=== PATIENT | male | born 1995 | race Caucasian/White ===

== ENCOUNTER 2018-05-16 17:26 | Emergency (ER) | payer OTHER, BC ==
[2018-05-16] MEDS ORDERED: AZITHROMYCIN 1 GM SUSP PACKET PO ONE (19:03)
[2018-05-16] MEDS ORDERED: LIDOCAINE 1% INJ-PF (10 MG/ML) 30 ML SDV INJ ONE (19:03)
[2018-05-16] MEDS ORDERED: CEFTRIAXONE INJ 250 MG VIAL IM ONE (19:03)
--- NOTE | 2018-05-16 19:08 | ER Document Report ---
HPI - HPI Patient complains to provider of: chlamydia exposure Time Seen by Provider: 05/16/18 18:22 Onset: Other Quality of pain: Burning Pain Level: 2 Context: Patient presents emergency department with reports that collins when he voids every now and then. He reports symptoms started about a month ago. He had unprotected sex with one person. Recently had sex with another person and was i nformed that she was positive for chlamydia. Denies testicular pain. Denies penile discharge. Reports his urine smells foul. Denies problems getting an erection. Denies fever vomiting diarrhea. Associated Symptoms: None Exacerbated by: Other - voiding Relieved by: Denies Similar symptoms previously: No Recently seen / treated by doctor: No - URINARY Urinary: REPORTS: Dysuria - Pain and irritation Past Medical History - General Information source: Patient - Social History Smoking Status: Current Every Day Smoker Cigarette use (# per day): Yes Frequency of alcohol use: Occasional Drug Abuse: None Occupation: [employer] – [place] Family History: None Patient has suicidal ideation: No Patient has homicidal ideation: No - Medical History Medical History: Negative Renal/ Medical History: Denies: Hx Peritoneal Dialysis Past Surgical History: Reports: Other - HERNIA REPAIR Vertical Provider Document - CONSTITUTIONAL Agree With Documented VS: Yes Exam Limitations: No Limitations General Appearance: WD/WN, No Apparent Distress - INFECTION CONTROL TRAVEL OUTSIDE OF THE [place] IN LAST 30 DAYS: No - HEENT HEENT: Atraumatic - NECK Neck: Supple - RESPIRATORY Respiratory: Breath Sounds Normal, No Respiratory Distress - CARDIOVASCULAR Cardiovascular: Regular Rate - GI/ABDOMEN Gastrointestinal: Abdomen Soft, Abdomen Non-Tender - MUSCULOSKELETAL/EXTREMETIES Musculoskeletal/Extremeties: MAEW, FROM - NEURO Level of Consciousness: Awake, Alert, Appropriate Motor/Sensory: No Motor Deficit - DERM Integumentary: Warm, Dry Course - Re-evaluation Re-evalutation: 05/16/18 19:06 Since patient was exposed to chlamydia who will be treated here. He was instructed on medications, importance of using protection and follow-up. He verbalized understanding. Dictation of this chart was performed using voice recognition software; therefore, there may be some unintended grammatical errors. 05/16/18 19:21 - Vital Signs Vital signs: Temp Pulse Resp BP Pulse Ox 98.6 F 57 L 18 151/56 H 98 05/16/18 17:36 05/16/18 17:36 05/16/18 17:36 05/16/18 17:36 05/16/18 17:36 Discharge - Discharge Clinical Impression: STD check, Chlamydia contact Condition: Stable Disposition: HOME, SELF-CARE Instructions: Azithromycin ([facility]), Chlamydia ([facility]), Gonorrhea ([facility]), [facility] [place], Rocephin ([facility]) Additional Instructions: *You have been evaluated for burn while voiding,Chlamydia exposure *Avoid sex for 1 week use a condom, ensure your partner was treated *Follow up with your BAS within one week for recheck *You may call the culture nurse at [phone] for results M-F 8am-4pm. Leave a message if she does not answer. She will call you back. *Return to ED for worsening condition, changes, needs Monitor your blood pressure. Your blood pressure was elevated today. This may be because you were anxious, in pain or because you need medication. It is important to follow up with your primary care provider for full evaluation. Forms: Elevated Blood Pressure
[2018-05-16 19:12] LABS: APPEARANCE,URINE CLEAR; BILIRUBIN,URINE NEGATIVE (NEGATIVE); COLOR,URINE YELLOW; GLUCOSE, URINE NEGATIVE (NEGATIVE); KETONES,URINE NEGATIVE (NEGATIVE); LEUKOCYTE ESTERASE,URINE NEGATIVE (NEGATIVE); NITRITE,URINE NEGATIVE (NEGATIVE); PROTEIN,URINE NEGATIVE (NEGATIVE); URINE SPECIFIC GRAVITY 1.021; UROBILINOGEN,URINE NEGATIVE mg/dL (<2.0)
[2018-05-16 19:41] VITALS: BP 141/57
[2018-05-16 20:27] LABS: CHLAM PCR DETECTED (NOT DETECT); GON PCR NOT DETECTED (NOT DETECT)
== END 2018-05-16 19:41 | disposition home or self-care (01) ==
LOC: ER 17:26
DX: Z20.2 Contact with and (suspected) exposure to infections with a predominantly sexual mode of transmission (principal); R30.0 Dysuria; R39.89 Other symptoms and signs involving the genitourinary system; F17.210 Nicotine dependence, cigarettes, uncomplicated
CPT/HCPCS: 99283; 81001; 87491; 87591; J3490; Q0144; J0696